=== PATIENT | female | born 2000 | race Caucasian/White ===

== ENCOUNTER → 2022-04-11 | Outpatient (CLI) | payer OTHER | LOC: M WHC 16:01 | PROVIDERS: ATTEND Specialist | DX: Z53.9 Procedure and treatment not carried out, unspecified reason (principal) ==

== ENCOUNTER 2022-05-09 11:21 | Emergency (ER) | payer OTHER ==
[~2022-05-09] VITALS: Ht 170.2 cm; Wt 59.1 kg
[2022-05-09] MEDS ORDERED: ONDA-83 (11:28)
[2022-05-09] MEDS ORDERED: NS 1,000 ML IV ONE (13:45)
[2022-05-09 14:07] LABS: BASO % 0.3 % (0.0-1.0); EOS % 0.2 % (0.0-3.0); HEMATOCRIT 33.5 % (36.0-47.0); HEMOGLOBIN 11.4 g/dl (12.0-15.5); LYMPH # 1.4 10^3/uL (1.5-5.0); LYMPH % 14.1 % (24.0-44.0); MEAN CORPUSCULAR HEMOGLOBIN 30.8 pg (27.0-33.0); MEAN CORPUSCULAR VOLUME 90.5 fl (80.0-96.0); MONO # 0.6 10^3/uL (0.0-0.8); MONO % 6.3 % (2.0-8.0); NEUTROPHILS % 78.5 % (36.0-66.0); PLATELET COUNT, AUTOMATED 262 10^3/uL (150-450); WHITE BLOOD COUNT 10.2 10^3/uL (4.0-10.0)
[2022-05-09 14:51] LABS: ALBUMIN 3.2 GM/DL (3.2-5.2); ALT/SGPT 14 U/L (12-78); BILIRUBIN,DIRECT 0.2 MG/DL (0.0-0.2); BILIRUBIN,TOTAL 0.6 MG/DL (0.2-1.0); BLOOD UREA NITROGEN 12 MG/DL (7-18); CALCIUM LEVEL 8.8 MG/DL (8.5-10.1); CARBON DIOXIDE LEVEL 21 MEQ/L (21-32); CHLORIDE LEVEL 104 MEQ/L (98-107); CREATININE FOR GFR 0.56 MG/DL (0.55-1.30); GLUCOSE, FASTING 71 MG/DL (70-100); LIPASE 129 U/L (73-393); POTASSIUM SERUM 3.8 MEQ/L (3.5-5.1); SODIUM LEVEL 135 MEQ/L (136-145); TOTAL PROTEIN 6.6 GM/DL (6.4-8.2)
[2022-05-09] MEDS ORDERED: METOCLOPRAMIDE INJ 10MG/2ML VIAL (J2765 PER 1) IV ONE (14:55)
[2022-05-09 16:31] VITALS: BP 126/77
[2022-05-09] MEDS ORDERED: ONDA4TAB6 PO (16:49)
== END 2022-05-09 17:12 | disposition home or self-care (01) ==
LOC: M ED 11:21
DX: O21.9 Vomiting of pregnancy, unspecified (principal); O99.282 Endocrine, nutritional and metabolic diseases complicating pregnancy, second trimester; E86.0 Dehydration; O99.322 Drug use complicating pregnancy, second trimester; F12.10 Cannabis abuse, uncomplicated; Z3A.24 24 weeks gestation of pregnancy; Z88.0 Allergy status to penicillin; Z88.1 Allergy status to other antibiotic agents; Z88.8 Allergy status to other drugs, medicaments and biological substances
CPT/HCPCS: 80048; 80076; 81000; 81015; 83690; 85025; 87086; 87486; 87581; 87633; 87798; 93970; 96361; 96374; 99284; J2765

== ENCOUNTER → 2022-05-15 | Outpatient (REF) | payer OTHER ==
[~2022-05-15] MED LIST: ONDA-83; ONDA4TAB6 PO
[2022-05-15 17:23] LABS: GC DNA AMPLIFICATION NEGATIVE (NEGATIVE)
== END ==
LOC: M SFHCWAGY 13:03
PROVIDERS: ATTEND Specialist
DX: Z34.02 Encounter for supervision of normal first pregnancy, second trimester (principal); Z3A.00 Weeks of gestation of pregnancy not specified

== ENCOUNTER → 2022-05-22 | Outpatient (CLI) | payer OTHER | LOC: M WHC 13:26 | PROVIDERS: ATTEND Specialist | DX: Z36.3 Encounter for antenatal screening for malformations (principal); Z3A.26 26 weeks gestation of pregnancy ==

== ENCOUNTER → 2022-05-22 | Outpatient (CLI) | payer OTHER | LOC: M PLALAB 15:49 | PROVIDERS: ATTEND Obstetrics & Gynecology | DX: Z53.9 Procedure and treatment not carried out, unspecified reason (principal) ==

== ENCOUNTER → 2022-05-22 | Outpatient (CLI) | payer OTHER ==
[2022-05-22 17:55] LABS: HEMATOCRIT 34.5 % (36.0-47.0); MEAN CORPUSCULAR HEMOGLOBIN 31.5 pg (27.0-33.0); MEAN CORPUSCULAR HGB CONC 34.8 g/dl (32.0-36.5); MEAN CORPUSCULAR VOLUME 90.6 fl (80.0-96.0); PLATELET COUNT, AUTOMATED 277 10^3/uL (150-450); RED BLOOD COUNT 3.81 10^6/uL (4.00-5.40); WHITE BLOOD COUNT 10.3 10^3/uL (4.0-10.0)
[2022-05-22 20:06] LABS: HEPATITIS C VIRUS ABY INDEX < 0.0 INDEX (<0.8); HIV 1&2 SCREEN CENTAUR NEGATIVE (NEGATIVE)
== END ==
LOC: M PLALAB 15:47
PROVIDERS: ATTEND Specialist
DX: Z36.9 Encounter for antenatal screening, unspecified (principal)

== ENCOUNTER → 2022-06-13 | Outpatient (CLI) | payer OTHER | LOC: M PLALAB 09:05 | PROVIDERS: ATTEND Obstetrics & Gynecology | DX: Z36.89 Encounter for other specified antenatal screening (principal); Z3A.25 25 weeks gestation of pregnancy ==

== ENCOUNTER → 2022-06-15 | Outpatient (CLI) | payer OTHER | LOC: M LAB 12:59 | PROVIDERS: ATTEND Specialist | DX: R73.09 Other abnormal glucose (principal) ==

== ENCOUNTER 2022-07-05 11:53 | Outpatient (CLI) | payer OTHER ==
[2022-07-05] VITALS (9 sets, daily range): BP systolic 114–137; BP diastolic 71–92
[~2022-07-05] VITALS: Ht 167.6 cm; Wt 66.1 kg
[2022-07-05] MEDS ORDERED: METO10TA2 PO (12:09)
[2022-07-05] MEDS ORDERED: ACET-910 PO (12:09)
[2022-07-05] MEDS ORDERED: HOME MED LIST COMPLETE! XX SCH (12:20)
[2022-07-05 13:25] LABS: APPEARANCE, URINE MANUAL HAZY (CLEAR); BILIRUBIN, URINE MANUAL NEGATIVE (NEGATIVE); BLOOD URINE MANUAL NEGATIVE (NEGATIVE); COLOR, URINE MANUAL YELLOW (YELLOW); GLUCOSE, URINE (UA) MANUAL NEGATIVE (NEGATIVE); KETONE, URINE MANUAL NEGATIVE (NEGATIVE); LEUKOCYTE ESTERASE, URINE MAN TRACE (NEGATIVE); NITRITE, URINE MANUAL NEGATIVE (NEGATIVE); PROTEIN, URINE MANUAL NEGATIVE (NEGATIVE); SPECIFIC GRAVITY,URINE MANUAL 1.005 (1.002-1.035); UROBILINOGEN, URINE MANUAL NORMAL (NORMAL)
[2022-07-05 13:52] LABS: BACTERIA, URINE LARGE AMOUNT; MUCUS, URINE MOD AMOUNT (NEGATIVE); RBC, URINE NONE SEEN /hpf (0-3); SQUAMOUS EPITHELIAL CELL URINE LARGE AMOUNT /hpf (SMALL AMT)
[2022-07-05] MEDS ORDERED: NIFEdipine 10 MG CAP PO ONE (15:00)
[2022-07-05] MEDS: BETAMETHASONE SOLUSPAN 6MG/ML 5ML VIAL (J0702 PER 3MG) IM SCH (15:17)
[2022-07-05 15:56] LABS: HEMATOCRIT 31.3 % (36.0-47.0); HEMOGLOBIN 10.5 g/dl (12.0-15.5); MEAN CORPUSCULAR HEMOGLOBIN 29.2 pg (27.0-33.0); MEAN CORPUSCULAR HGB CONC 33.5 g/dl (32.0-36.5); MEAN CORPUSCULAR VOLUME 87.2 fl (80.0-96.0); PLATELET COUNT, AUTOMATED 258 10^3/uL (150-450); RED BLOOD COUNT 3.59 10^6/uL (4.00-5.40); WHITE BLOOD COUNT 11.8 10^3/uL (4.0-10.0)
[2022-07-05] MEDS ORDERED: DOCUSATE SODIUM 100MG CAPSULE PO PRN (20:25)
[2022-07-05] MEDS: FERROUS GLUCONATE 324 MG TAB PO SCH (21:02)
[2022-07-06] VITALS (8 sets, daily range): BP systolic 106–134; BP diastolic 58–75
[2022-07-06] MEDS: FERROUS GLUCONATE 324 MG TAB PO SCH (08:53)
[2022-07-06] MEDS ORDERED: PRENATAL VITAMINS CHEWABLE TABLET PO SCH (09:00)
[2022-07-06] MEDS ORDERED: LR 1,000 ML IV ONE (10:55)
[2022-07-06 12:17] LABS: HEMATOCRIT 28.1 % (36.0-47.0); HEMOGLOBIN 9.2 g/dl (12.0-15.5); MEAN CORPUSCULAR HEMOGLOBIN 29.1 pg (27.0-33.0); MEAN CORPUSCULAR HGB CONC 32.7 g/dl (32.0-36.5); MEAN CORPUSCULAR VOLUME 88.9 fl (80.0-96.0); PLATELET COUNT, AUTOMATED 235 10^3/uL (150-450); RED BLOOD COUNT 3.16 10^6/uL (4.00-5.40); WHITE BLOOD COUNT 13.5 10^3/uL (4.0-10.0)
[2022-07-06 12:59] LABS: ALBUMIN 2.4 GM/DL (3.2-5.2); ALT/SGPT 18 U/L (12-78); BILIRUBIN,TOTAL 0.4 MG/DL (0.2-1.0); BLOOD UREA NITROGEN 9 MG/DL (7-18); CALCIUM LEVEL 8.5 MG/DL (8.5-10.1); CARBON DIOXIDE LEVEL 24 MEQ/L (21-32); CHLORIDE LEVEL 104 MEQ/L (98-107); CREATININE FOR GFR 0.61 MG/DL (0.55-1.30); GLUCOSE, FASTING 147 MG/DL (70-100); POTASSIUM SERUM 3.6 MEQ/L (3.5-5.1); SODIUM LEVEL 135 MEQ/L (136-145); TOTAL PROTEIN 5.6 GM/DL (6.4-8.2)
[2022-07-06] MEDS: BETAMETHASONE SOLUSPAN 6MG/ML 5ML VIAL (J0702 PER 3MG) IM SCH (15:14)
== END 2022-07-06 17:36 | disposition home or self-care (01) ==
LOC: M LDO 11:53
PROVIDERS: ATTEND Advanced Practice Midwife
DX: O60.03 Preterm labor without delivery, third trimester (principal); Z3A.32 32 weeks gestation of pregnancy
CPT/HCPCS: 36415; 59025; 76815; 76819; 76820; 80053; 81000; 82731; 85027; 86780; 86850; 86900; 86901; 87081; 87086; 87186; 96372; J0702

== ENCOUNTER 2022-07-15 17:16 | Inpatient (IN) | payer OTHER ==
[~2022-07-15] VITALS: Ht 167.6 cm; Wt 65.3 kg
[~2022-07-15 17:16] MED LIST changes: +ACET-910 PO; +METO10TA2 PO
[2022-07-15] MEDS ORDERED: TUMS500C PO (17:42)
[2022-07-15 17:46] VITALS: BP 108/58
[2022-07-15 18:23] VITALS: BP 104/56
[2022-07-15 19:30] LABS: HEMATOCRIT 29.7 % (36.0-47.0); HEMOGLOBIN 9.9 g/dl (12.0-15.5); MEAN CORPUSCULAR HEMOGLOBIN 29.1 pg (27.0-33.0); MEAN CORPUSCULAR HGB CONC 33.3 g/dl (32.0-36.5); MEAN CORPUSCULAR VOLUME 87.4 fl (80.0-96.0); PLATELET COUNT, AUTOMATED 265 10^3/uL (150-450); WHITE BLOOD COUNT 16.6 10^3/uL (4.0-10.0)
[2022-07-15 19:41] VITALS: BP 107/63
[2022-07-15 20:48] VITALS: BP 104/56
[2022-07-15] MEDS ORDERED: ACETAMINOPHEN 500 MG TAB PO PRN (21:30)
[2022-07-15 21:39] VITALS: BP 128/81
[2022-07-15 23:23] VITALS: BP 117/58
[2022-07-16] VITALS (24 sets, daily range): BP systolic 100–138; BP diastolic 55–80
[2022-07-16] MEDS ORDERED: ceFAZolin SOD 2 GM in IV 1 EA IV STA (02:28)
[2022-07-16] MEDS ORDERED: LIDOCAINE 1% MDV 20ML VIAL INFIL PRN (02:30)
[2022-07-16] MEDS ORDERED: OXYTOCIN DRIP 30 UNITS in IV 1 EA IV PRN (02:30)
[2022-07-16] MEDS ORDERED: EPIDURAL/PCA KEYS XX PRN (03:25)
[2022-07-16] MEDS ORDERED: FENTANYL/ROPIVACAINE/NACL BAG 100 ML EPIDURAL SCH (03:25)
[2022-07-16] MEDS ORDERED: LR 500 ML IV PRN (03:25)
[2022-07-16] MEDS ORDERED: diphenhydrAMINE 50MG/ML VIAL IV PRN (03:25)
[2022-07-16] MEDS ORDERED: NALOXONE INJ 0.4MG/1ML VIAL (J2310 PER 1MG) IV PRN (03:25)
[2022-07-16] MEDS ORDERED: ePHEDrine SULFATE 25 MG/5 ML(5MG/ML) SYRINGE IVP PRN (03:25)
[2022-07-16] MEDS ORDERED: ONDANSETRON 4MG 2ML VIAL IV PRN (03:25)
[2022-07-16 05:14] LABS: CORD GAS ABE V -6.2; CORD GAS HCO3 V 21.8 MEQ/L; CORD GAS O2 SAT V 65.9 %; CORD GAS PCO2 V 52.7 mmHg; CORD GAS PH V 7.235 UNITS; CORD GAS PO2 V 27.6 mmHg; CORD GAS SBC V 18.8 MEQ/L; CORD GAS TCO2 V 23.4 MEQ/L
[2022-07-16 05:15] LABS: CORD GAS HCO3 A 21.3 MEQ/L
[2022-07-16 05:17] LABS: CORD GAS ABE A -11.6; CORD GAS PH A 7.011 UNITS; CORD GAS PO2 A 12.6 mmHg; CORD GAS TCO2 A 23.9 MEQ/L
[2022-07-16] MEDS ORDERED: DIBUCAINE 1% OINTMENT 30GM TOP PRN (05:25)
[2022-07-16] MEDS ORDERED: METHYLERGONOVINE MALEATE 0.2 MG TAB PO PRN (05:25)
[2022-07-16] MEDS ORDERED: ACETAMINOPHEN 500 MG TAB PO PRN (05:25)
[2022-07-16] MEDS ORDERED: RHOGAM 300 MCG (1500 IU) INJ (J2790) IM SCH (05:25)
[2022-07-16] MEDS ORDERED: IBUPROFEN 600MG TAB PO PRN (05:25)
[2022-07-16] MEDS ORDERED: DOCUSATE SODIUM 100MG CAPSULE PO PRN (05:25)
[2022-07-16] MEDS ORDERED: ACETAMINOPHEN TAB 650MG DOSE (2X325MG) PO PRN (05:25)
[2022-07-16 07:00] LABS: AMPHETAMINES URINE REFLEX NEGATIVE (NEGATIVE); BARBITURATES URINE REFLEX NEGATIVE (NEGATIVE); BENZODIAZEPINES URINE REFLEX NEGATIVE (NEGATIVE); CANNABINOIDS URINE REFLEX NEGATIVE (NEGATIVE); COCAINE METABOLITE URINE REFLE NEGATIVE (NEGATIVE); METHADONE URINE REFLEX NEGATIVE (NEGATIVE); OPIATES URINE REFLEX NEGATIVE (NEGATIVE); PHENCYCLIDINE URINE REFLEX NEGATIVE (NEGATIVE)
[2022-07-16] MEDS: PRENATAL VITAMINS CHEWABLE TABLET PO SCH (09:05)
[2022-07-16] MEDS: IBUPROFEN 800 MG TAB PO PRN (09:06)
[2022-07-16] MEDS ORDERED: FENTANYL 2MCG/ML ROPIVACAINE 0.2% IN 0.9% NACL 100ML IVBAG As Ordered ONE (09:48)
[2022-07-16] MEDS ORDERED: ceFAZolin SOD 1 GM in D5W MINI-BAG PLUS 50 ML IV SCH (11:00)
[2022-07-17] MEDS: IBUPROFEN 800 MG TAB PO PRN ×2 (00:19→17:29)
[2022-07-17 06:00] VITALS: BP 121/72
[2022-07-17] MEDS: PRENATAL VITAMINS CHEWABLE TABLET PO SCH (10:19)
[2022-07-17 17:55] VITALS: BP 118/74
[2022-07-18 06:12] VITALS: BP 126/74
[2022-07-18] MEDS ORDERED: MEASLES,MUMPS,RUBELLA VACCINE INJ (MMR-II) (90707) SC.IMMUN ONE (09:00)
[2022-07-18] MEDS: PRENATAL VITAMINS CHEWABLE TABLET PO SCH (09:06)
== END 2022-07-18 14:00 | disposition home or self-care (01) | DRG 560 ==
LOC: M LDO 17:16 → M LDI 07-16 02:24 → M OBS 07-16 07:30
PROVIDERS: ADMIT Specialist; ATTEND Specialist
PROC: 10E0XZZ Delivery of Products of Conception, External Approach (ICD-10-PCS; principal; 2022-07-16)
PROC: 10907ZC Drainage of Amniotic Fluid, Therapeutic from Products of Conception, Via Natural or Artificial Opening (ICD-10-PCS; 2022-07-16)
DX: O60.14X0 Preterm labor third trimester with preterm delivery third trimester, not applicable or unspecified (principal); O69.81X0 Labor and delivery complicated by cord around neck, without compression, not applicable or unspecified; Z3A.34 34 weeks gestation of pregnancy; Z37.0 Single live birth

== ENCOUNTER 2024-12-11 17:40 | Emergency (ER) | payer OTHER ==
[~2024-12-11] VITALS: Ht 165.1 cm; Wt 82.3 kg
[~2024-12-11 17:40] MED LIST changes: +ONDA-282 PO; -ONDA4TAB6 PO; +TUMS500C PO
[2024-12-11] MEDS ORDERED: TRAZ-252 (17:50)
[2024-12-11] MEDS ORDERED: PRAZ2CAP (17:50)
[2024-12-11] MEDS ORDERED: PANT20TA6 (17:50)
[2024-12-11 18:30] LABS: BASO % 0.4 % (0.0-1.0); EOS # 0.1 10^3/uL (0.0-0.5); EOS % 1.1 % (0.0-3.0); HEMOGLOBIN 15.2 g/dl (12.0-15.5); LYMPH # 1.8 10^3/uL (1.5-5.0); LYMPH % 32.5 % (24.0-44.0); MEAN CORPUSCULAR HEMOGLOBIN 29.6 pg (27.0-33.0); MEAN CORPUSCULAR HGB CONC 35.3 g/dl (32.0-36.5); MEAN CORPUSCULAR VOLUME 83.8 fl (80.0-96.0); MONO # 0.7 10^3/uL (0.0-0.8); MONO % 12.6 % (2.0-8.0); NEUTROPHILS # 2.9 10^3/uL (1.5-8.5); NEUTROPHILS % 53.4 % (36.0-66.0); PLATELET COUNT, AUTOMATED 314 10^3/uL (150-450); RED BLOOD COUNT 5.13 10^6/uL (4.00-5.40); WHITE BLOOD COUNT 5.4 10^3/uL (4.0-10.0)
[2024-12-11 18:40] LABS: HCG, SERUM QUALITATIVE NEGATIVE (NEGATIVE); LIPASE 28 U/L (12-53)
[2024-12-11 18:42] LABS: ALBUMIN 4.1 G/DL (3.2-5.2); ALKALINE PHOSPHATASE 76 U/L (35-104); ALT/SGPT 39 U/L (7.0-40); AST/SGOT 21 U/L (<34); BILIRUBIN,DIRECT 0.2 MG/DL (<0.4); BILIRUBIN,TOTAL 0.5 MG/DL (0.3-1.2); BLOOD UREA NITROGEN 13 MG/DL (9-23); CALCIUM LEVEL 9.1 MG/DL (8.5-10.1); CARBON DIOXIDE LEVEL 28 MMOL/L (20-31); CHLORIDE LEVEL 103 MMOL/L (98-107); CREATININE FOR GFR 0.81 MG/DL (0.55-1.30); GLOMERULAR FILTRATION RATE > 90.0 (>60); GLUCOSE, FASTING 90 MG/DL (60-100); POTASSIUM SERUM 4.1 MMOL/L (3.5-5.1); SODIUM LEVEL 138 MMOL/L (136-145); TOTAL PROTEIN 7.6 G/DL (5.7-8.2)
[2024-12-11 20:48] LABS: KETONE, URINE AUTO RFX NEGATIVE (NEGATIVE); MUCUS, URINE RFX SMALL (NEGATIVE); NITRITE, URINE AUTO RFX NEGATIVE (NEGATIVE); RBC, URINE AUTO RFX 4 /HPF (0-3); SQUAM EPITHELIAL CELL UR AURFX 14 /HPF (0-6)
[2024-12-11 21:31] LABS: LEUKOCYTE ESTERASE UR AUTO RFX 2+ (NEGATIVE); WBC, URINE AUTO RFX 22 /HPF (0-3)
[2024-12-12 01:04] VITALS: BP 128/88; TEMP 98; O2SAT 99
== END 2024-12-12 01:17 | disposition home or self-care (01) ==
LOC: M ED 17:40
DX: N93.9 Abnormal uterine and vaginal bleeding, unspecified (principal); F32.9 Major depressive disorder, single episode, unspecified; Z87.891 Personal history of nicotine dependence; Z88.0 Allergy status to penicillin; Z88.1 Allergy status to other antibiotic agents

== ENCOUNTER → 2024-12-31 | Outpatient (CLI) | payer OTHER ==
[~2024-12-31] MED LIST changes: +PANT20TA6; +PRAZ2CAP; +TRAZ-252
== END ==
LOC: M WHC 12:39
PROVIDERS: ATTEND Physician Assistant
DX: N63.22 Unspecified lump in the left breast, upper inner quadrant (principal); D49.3 Neoplasm of unspecified behavior of breast